=== PATIENT | male | born 1960 | race Caucasian/White ===

== ENCOUNTER 2018-02-17 11:51 | Emergency (ER) | payer OTHER ==
[~2018-02-17] VITALS: Ht 177.8 cm; Wt 88.6 kg
[~2018-02-17 11:51] MED LIST: DICL50 PO; PENI500T PO; Z.0.NO CURRENT MEDS
[2018-02-17 12:45] VITALS: BP 142/90; PULSE 88; RESP 18; TEMP 97.9; O2SAT 98
[2018-02-17] MEDS ORDERED: PERC5TAB12 PO ×2 (13:21→13:27)
--- NOTE | 2018-02-17 13:25 | PD ---
HPI Chief Complaint: Injury Time Seen by Provider: 13:07 Travel History International Travel<30 days: No Contact w/Intl Traveler<30days: No Traveled to known affect area: No History of Present Illness HPI 57-year-old male presents emergency department status post fracture to the left distal femur in the knee joint requiring open reduction and fixation. Patient is here in a knee immobilizer and crutches requesting pain meds as he has an appointment in [address] Park, orthopedist for further treatment. Patient was originally seen at [facility] for the original injury which was on 01/25/2018. Patient has no other complaints or worries. Pain is currently 7 out of 10, and he was taking Percocet every 4 hours. He is allergic to codeine. PFSH Past Medical History Diminished Hearing: No Musculoskeletal: Yes (SHOULDER PAIN LT KNEE PAIN) Immunizations Current: Yes Past Surgical History Joint Replacement: Yes (RIGHT ELBOW) Other Surgery: Yes (TUMORS REMOVED FROM CHEST) Social History Alcohol Use: Yes (Saturday) Tobacco Use: Yes (1 PPD) Substance Use: Yes Allergies-Medications (Allergen,Severity, Reaction): Uncoded Allergies: CODIENE (Allergy, Severe, 11/08/11) Reported Meds & Prescriptions Reported Meds & Active Scripts Active Percocet (Oxycodone-Acetaminophen) 5-325 mg Tab 1 Tab PO Q6H PRN Voltaren (Diclofenac Sodium) 50 Mg Tabec 50 Mg PO TIDPRN FOR PAIN Pen Vk (Penicillin V Potassium) 500 Mg Tab 500 Mg PO QID Reported No Current Meds (Miscellaneous Medication) Misc Review of Systems Except as stated in HPI: all other systems reviewed are Neg General / Constitutional: No: Fever Eyes: No: Visual changes HENT: No: Headaches Cardiovascular: No: Chest Pain or Discomfort Respiratory: No: Shortness of Breath Gastrointestinal: No: Abdominal Pain Genitourinary: No: Dysuria Musculoskeletal: Positive: Arthralgias, Limited ROM, Pain Skin: No Rash Neurologic: No: Weakness Psychiatric: No: Depression Endocrine: No: Polydipsia Hematologic/Lymphatic: No: Easy Bruising Physical Exam Narrative GENERAL: Patient appears in mild to moderate distress per SKIN: Warm and dry. Normal color. Normal turgor HEAD: Atraumatic. Normocephalic. EYES: Pupils equal and round. No scleral icterus. No injection or drainage. ENT: No nasal bleeding or discharge. Mucous membranes pink and moist. Pharynx is clear. Airways patent NECK: Trachea midline. Supple and nontender per CARDIOVASCULAR: Regular rate and rhythm. RESPIRATORY: No accessory muscle use. Clear to auscultation. Breath sounds equal bilaterally. MUSCULOSKELETAL: Extremities without clubbing, cyanosis, or edema. No obvious deformities. Patient is wearing a knee immobilizer which is maintained. Repeat knee exam was not performed secondary to known fracture. NEUROLOGICAL: Awake and alert. No obvious cranial nerve deficits. Motor grossly within normal limits. Five out of 5 muscle strength in the arms and legs. Normal speech. PSYCHIATRIC: Appropriate mood and affect; insight and judgment normal. Data Data Last Documented VS Vital Signs Date Time Temp Pulse Resp B/P (MAP) Pulse Ox O2 Delivery O2 Flow Rate FiO2 02/17/18 12:45 97.9 88 18 142/90 (107) 98 MDM Medical Decision Making Medical Screen Exam Complete: Yes Emergency Medical Condition: Yes Medical Record Reviewed: Yes Differential Diagnosis Left knee pain. Left knee fracture. Need for medication refill Narrative Course Patient is medically stable at time of exam. Patient is given Percocet 5/325 one every 6 hours as needed #12. Patient to follow-up with orthopedist as scheduled. Diagnosis Primary Impression: Encounter for medication refill Additional Impression: Closed fracture of left distal femur Qualified Codes: S72.402D - Unspecified fracture of lower end of left femur, subsequent encounter for closed fracture with routine healing Referrals: Juan M Park MD 3 days Patient Instructions: General Instructions Additional Instructions: Patient is given Percocet 5/325 one every 6 hours as needed #12. Patient to follow-up with orthopedist as scheduled. Scripts Oxycodone-Acetaminophen (Percocet) 5-325 mg Tab 1 TAB PO Q6H Y for PAIN, #12 TAB 0 Refills Prov: Tamiko Rizvi MD 02/17/18 Disposition: 01 DISCHARGE HOME Condition: Stable Hari Arenas Feb 17, 2018 13:25
== END 2018-02-17 13:38 | disposition home or self-care (01) ==
LOC: NEPK 11:51
DX: S72.402D Unspecified fracture of lower end of left femur, subsequent encounter for closed fracture with routine healing (principal); X58.XXXD Exposure to other specified factors, subsequent encounter; Z76.0 Encounter for issue of repeat prescription
CPT/HCPCS: 99281

== ENCOUNTER 2018-02-21 05:34 | Day surgery (SDC) | payer OTHER ==
[~2018-02-21] VITALS: Ht 180.3 cm; Wt 88.4 kg
[~2018-02-21 05:34] MED LIST changes: +PERC5TAB12 PO
[2018-02-21] MEDS ORDERED: METOPROLOL TARTRATE 25 MG TAB PO PRN (06:00)
[2018-02-21] MEDS ORDERED: POVIDONE IODINE 5% (ANTISEPSIS KIT) 4 APPLICATIONS EACH NARE PRN (06:00)
[2018-02-21] MEDS ORDERED: ceFAZolin 2 GM PREMIX 50 ML IV SCH (06:00)
[2018-02-21] MEDS ORDERED: SODIUM CHLORID 0.9% 500 ML IV PRN (06:00)
[2018-02-21] MEDS ORDERED: CHLORHEXIDINE GLUCONATE 2 % 1 PACK (2 CLOTHS) TOPICAL PRN (06:00)
[2018-02-21] MEDS ORDERED: LACTATED RINGER'S 1000 ML IV PRN (06:00)
[2018-02-21] MEDS ORDERED: VANCOMYCIN 1 GM/200 ML PREMIX ON-CALL IV SCH (06:00)
[2018-02-21] MEDS ORDERED: CHLORHEXIDINE GLUCONATE 4% SOLN 120 ML BTL TOPICAL SCH (06:00)
[2018-02-21 06:31] LABS: BASOPHIL # 0.1 TH/MM3 (0-0.2); BASOPHIL % 0.7 % (0.0-2.0); EOSINOPHIL # 0.3 TH/MM3 (0-0.4); EOSINOPHIL % 3.1 % (0.0-4.0); HEMATOCRIT 45.4 % (39.0-51.0); HEMOGLOBIN 15.3 GM/DL (13.0-17.0); LYMPH % 27.9 % (9.0-44.0); LYMPHOCYTE # 3.2 TH/MM3 (1.0-4.8); MEAN CELL VOLUME 91.2 FL (80.0-100.0); MEAN CORPUSCULAR HEMOGLOBIN 30.7 PG (27.0-34.0); MEAN CORPUSCULAR HGB CONC 33.7 % (32.0-36.0); MEAN PLATELET VOLUME 9.4 FL (7.0-11.0); MONO % 6.6 % (0.0-8.0); MONOCYTE # 0.7 TH/MM3 (0-0.9); NEUT % 61.7 % (16.0-70.0); PLATELET COUNT 230 TH/MM3 (150-450); RED BLOOD COUNT 4.98 MIL/MM3 (4.50-5.90); RED CELL DISTRIBUTION WIDTH 13.2 % (11.6-17.2); WHITE BLOOD COUNT 11.3 TH/MM3 (4.0-11.0)
[2018-02-21] MEDS ORDERED: GENTAMICIN SULFATE 80 MG/2 ML VIAL ONE (07:06)
[2018-02-21] MEDS ORDERED: KETAMINE HCL 50 MG/5 ML SYRINGE ONE (07:13)
[2018-02-21] MEDS ORDERED: XARE10TA PO (09:20)
[2018-02-21] MEDS ORDERED: PERC7.5T13 PO (09:20)
--- NOTE | 2018-02-21 09:24 | PD.ORT.PN ---
Subjective Subjective Remarks Postop day #0 status post ORIF left distal femur lateral condyle fracture Objective Vitals Vital Signs Date Time Temp Pulse Resp B/P (MAP) Pulse Ox O2 Delivery O2 Flow Rate FiO2 02/21/18 06:00 98.2 94 18 143/91 (108) 95 I/O 02/20/18 02/20/18 02/20/18 02/21/18 02/21/18 02/21/18 07:00 15:00 23:00 07:00 15:00 23:00 Intake Total 1200 ml Output Total 100 ml Balance 1100 ml Intake IV Total 1200 ml Output Estimated Blood Loss 100 ml Result Diagram: 02/21/18 0620 Objective Remarks Clean dry dressings in place. Calf and thigh compartments soft. Intact sensation left foot. Palpable dorsalis pedis pulse Assessment & Plan Assessment and Plan Strict nonweightbearing left leg Physical therapy for gait training and passive range of motion knee Prescriptions on chart Discharge home on Saturday if safe with therapy Follow-up with Dr. Collazo in 2 weeks Galo Collazo MD Feb 21, 2018 09:24
--- NOTE | 2018-02-21 09:27 | PD.OP ---
cc: Galo Hwang MD Operative Report Date of Surgery: Feb 21, 2018 Preoperative Diagnosis: Displaced left distal femur lateral condyle fracture Postoperative Diagnosis: Procedure: Open reduction internal fixation left distal femur lateral condyle fracture Anesthesia: General Surgeon: Galo Hwang Tank House Operator(s): JUAN Huertas PA-C The surgical procedure was assisted by my physician medical receptionist medical assistant. My P.A. presence was necessary throughout this case for the manipulation and positioning of the surgical extremity. My P.A. was assisting me throughout the duration of this procedure. The skill set of a physician medical receptionist medical assistant was medically necessary to complete this procedure. During the surgical case the surgical garment fitter was working at the back table and the physician medical receptionist medical assistant was directly assisting me. Operation and Findings: Josué was seen and evaluated preoperatively. The risks and benefits of surgery were discussed in depth with patient. Informed consent was obtained, operative site was marked. Patient was brought to the OR, placed on OR table, and given IV sedation with GETA. IV antibiotics were administered and timeout procedure was performed. The operative leg was prepped with alcohol, followed with Hibiclens, draped in usual sterile fashion. A timeout procedure was performed. The procedure began with a 5-inch incision over the lateral aspect of the distal femur. Subcutaneous tissue was dissected with Bovie. Iliotibial band was split in line with fibers. At this point the fracture was visualized. There was moderate fracture callus formation. Curettes were used to debride the fracture callus formation to allow for mobilization of the fracture. There was a fracture gap along the articular surface. There was also shortening of the lateral condyle which was resulting in a valgus knee deformity. Traction was applied. Fracture was manipulated. The fracture reduced into excellent alignment. A large periarticular clamp was used to compress the medial and lateral condyles together. Steinmann pins were used to hold provisional fixation. At this point attention was turned to plate placement. A lateral condylar plate was selected and attached to the insertion handle jig. The plate was placed underneath the vastus lateralis. Steinmann pins were used to hold the plate to bone. Multiplanar fluoroscopy confirmed appropriate placement of plate. Multiple 4.5 cortical screws were now placed. The plate was compressed to bone. Multiple locking screws were now placed in the distal segment of the distal femur. All screws were predrilled and premeasured for appropriate length. Final fluoroscopy revealed excellent alignment of fracture with well-placed hardware. Wound was thoroughly irrigated. Fascia was closed with #1 Vicryl. Subcutaneous tissue was closed with 3-0 Vicryl. Skin was closed with chuck. Sterile dressings were applied. The patient was placed into a knee immobilizer and transferred to recovery in stable condition. Needle and sponge counts were correct. Galo Hwang MD Feb 21, 2018 09:27
[2018-02-21] MEDS ORDERED: Post-op Orders (for Pharmacy) XX ONE (09:30)
[2018-02-21] MEDS ORDERED: oxyCODONE/ACETAMINOPHEN 7.5 MG/325 MG TAB PO PRN (09:30)
[2018-02-21] MEDS ORDERED: MISCELLANEOUS NURSING INFORMATION XX PRN (09:30)
[2018-02-21] MEDS ORDERED: NALOXONE HCL 0.4 MG/ML AMP IV PUSH PRN (09:30)
[2018-02-21] MEDS ORDERED: ONDANSETRON HCL 4 MG/2 ML VIAL IVP PRN (09:30)
[2018-02-21] MEDS ORDERED: diphenhydrAMINE HCL 25 MG CAP PO PRN (09:30)
[2018-02-21] MEDS ORDERED: MORPHINE SULFATE 4 MG/ML INJ IV PUSH PRN (09:30)
[2018-02-21] MEDS ORDERED: *MEPERIDINE 25 MG INJ VIAL PERIprocedural Use ONLY ONE (09:39)
[2018-02-21] MEDS ORDERED: DO NOT ADM ANY ANTICOAGULANT DRUGS PRN (09:42)
[2018-02-21] MEDS ORDERED: *morphine SULFATE 8 MG/ML PERIprocedure ONLY ONE (09:43)
[2018-02-21] MEDS: HYDROmorphone HCL PF 2 MG/ML VIAL IV PUSH PRN ×3 (09:45→22:00)
[2018-02-21] MEDS ORDERED: HYDROmorphone HCL PF 2 MG/ML VIAL ONE ×5 (09:46→12:59)
[2018-02-21] MEDS ORDERED: LORazepam 2 MG/ML VIAL ONE (09:53)
[2018-02-21] MEDS ORDERED: MIDAZOLAM HCL 2 MG/2 ML VIAL ONE (09:53)
[2018-02-21] MEDS: LACTATED RINGER'S 1000 ML INJ 1,000 ML IV SCH ×2 (10:00→19:59)
[2018-02-21] MEDS ORDERED: DEXAMETHASONE SOD PHOS 4 MG/ML VIAL IV ONE (12:00)
[2018-02-21] MEDS ORDERED: ONDANSETRON HCL 4 MG/2 ML VIAL IV ONE (12:00)
[2018-02-21] MEDS ORDERED: PROPOFOL 200 MG/20 ML AMP IV ONE (12:00)
[2018-02-21] MEDS ORDERED: LIDOCAINE HCL 1% PF 5 ML SYRINGE OTHER ONE (12:00)
[2018-02-21] MEDS ORDERED: LABETALOL HCL 100 MG/20 ML VIAL IV ONE (12:00)
[2018-02-21] MEDS ORDERED: HYDROmorphone HCL PF 1 MG/ML VIAL IV PUSH PRN (13:00)
[2018-02-21] MEDS ORDERED: ERGOCALCIFEROL (VIT D2) 50,000 UNIT CAP PO SCH (14:00)
--- NOTE | 2018-02-21 14:41 | RADRPT ---
EXAM DATE/TIME: 02/21/2018 09:08 [place] COMPARISON: No previous studies available for comparison. INDICATIONS : ORIF left femur. MEDICAL HISTORY : None. SURGICAL HISTORY : None. ENCOUNTER: Initial ACUITY: 1 day PAIN SCORE: Non-responsive. LOCATION: Left Femur. FINDINGS: Hardware is noted within the left distal femur status post ORIF and is in good position. CONCLUSION: Status post ORIF of left distal femur fracture with hardware in good position. Paulino Aguero MD on February 21, 2018 at 14:39 Board Certified Radiologist. This report was verified electronically.
[2018-02-21] MEDS: oxyCODONE/ACETAMINOPHEN 10 MG/325 MG TAB PO PRN ×3 (15:00→23:56)
[2018-02-21] MEDS: ceFAZolin 2 GM PREMIX 50 ML IV SCH ×2 (15:42→23:56)
[2018-02-21 16:00] VITALS: BP 128/83; PULSE 78; RESP 16; TEMP 97.5; O2SAT 96
--- NOTE | 2018-02-21 19:31 | EKG ---
Date Performed: 02/21/2018 Time Performed: 06:29:23 PTAGE: 57 years EKG: Sinus rhythm NORMAL ECG INTERPRETATION BASED ON A DEFAULT AGE OF 40 YEARS NO PREVIOUS TRACING DOCTOR: Irvin Arroyo Interpretating Date/Time 02/21/2018 19:29:00
[2018-02-21] MEDS: DOCUSATE SODIUM 50 MG/SENNA 8.6 MG TAB PO SCH (19:53)
[2018-02-21] MEDS: VANCOMYCIN INJ 1,000 MG in SODIUM CHLOR 0.9% 250 ML INJ 250 ML IV SCH (19:57)
[2018-02-21 20:05] VITALS: BP 122/70; PULSE 81; RESP 18; TEMP 98.8; O2SAT 97
[2018-02-22 00:15] VITALS: BP 130/68; PULSE 84; RESP 18; TEMP 98.7; O2SAT 95
[2018-02-22] MEDS: HYDROmorphone HCL PF 2 MG/ML VIAL IV PUSH PRN ×2 (02:00→06:15)
[2018-02-22 03:59] VITALS: BP 136/72; PULSE 88; RESP 18; TEMP 98.9; O2SAT 96
[2018-02-22] MEDS: oxyCODONE/ACETAMINOPHEN 10 MG/325 MG TAB PO PRN ×4 (04:32→17:00)
[2018-02-22 06:26] LABS: HEMOGLOBIN 12.4 GM/DL (13.0-17.0)
[2018-02-22 06:29] VITALS: BP 117/59; PULSE 70; RESP 18; TEMP 97.9; O2SAT 97
--- NOTE | 2018-02-22 07:16 | PD.ORT.PN ---
Subjective Subjective Remarks Patient resting comfortably this morning. States he was unable to sleep overnight due to discomfort. Objective Vitals Vital Signs Date Time Temp Pulse Resp B/P (MAP) Pulse Ox O2 Delivery O2 Flow Rate FiO2 02/22/18 03:59 98.9 88 18 136/72 (93) 96 02/22/18 00:15 98.7 84 18 130/68 (88) 95 02/21/18 20:05 98.8 81 18 122/70 (87) 97 02/21/18 16:00 97.5 78 16 128/83 (98) 96 02/21/18 15:00 70 15 116/70 (85) 95 Nasal Cannula 2 02/21/18 13:00 65 15 124/60 (81) 97 Nasal Cannula 2 02/21/18 12:00 72 16 122/62 (82) 97 Nasal Cannula 2 02/21/18 11:55 15 02/21/18 11:30 76 16 130/72 (91) 97 Nasal Cannula 2 02/21/18 10:45 98.7 72 14 149/76 (100) 96 Nasal Cannula 2 02/21/18 10:30 71 15 150/81 (104) 96 Nasal Cannula 2 02/21/18 10:15 70 16 159/77 (104) 94 Nasal Cannula 2 02/21/18 10:00 81 26 172/83 (112) 98 Room Air 02/21/18 09:45 90 24 178/84 (115) 100 Room Air 02/21/18 09:40 98.0 92 20 135/90 (105) 99 Simple Mask 6 I/O 02/21/18 02/21/18 02/21/18 02/22/18 02/22/18 02/22/18 07:00 15:00 23:00 07:00 15:00 23:00 Intake Total 1200 ml 1920 ml 480 ml Output Total 100 ml 650 ml 1275 ml Balance 1100 ml 1270 ml -795 ml Intake Oral 420 ml 480 ml IV Total 1200 ml 1500 ml Output Urine Total 650 ml 1275 ml Estimated Blood Loss 100 ml # Voids 2 # Bowel Movements 0 Result Diagram: 02/22/18 0522 Objective Remarks Awake, alert, no acute distress. Left lower extremity: Clean dry dressings in place. Calf and thigh compartments soft. Neurovascularly intact distally. Intact sensation left foot. Palpable dorsalis pedis pulse Assessment & Plan Assessment and Plan 57yo M, POD#1 s/p ORIF L femoral condyle fracture Strict nonweightbearing left leg Physical therapy for gait training and passive range of motion knee Prescriptions on chart Discharge home today if safe with therapy Follow-up with Dr. Collazo in 2 weeks Kandis Mon MD Feb 22, 2018 07:16
[2018-02-22] MEDS: DOCUSATE SODIUM 50 MG/SENNA 8.6 MG TAB PO SCH (08:48)
[2018-02-22] MEDS: VANCOMYCIN INJ 1,000 MG in SODIUM CHLOR 0.9% 250 ML INJ 250 ML IV SCH (08:50)
[2018-02-22] MEDS: ceFAZolin 2 GM PREMIX 50 ML IV SCH ×2 (08:50→15:53)
[2018-02-22] MEDS ORDERED: CHOLECALCIFEROL (VIT D3) 1000 UNIT TAB PO SCH (09:00)
[2018-02-22] MEDS ORDERED: ENOXAPARIN SODIUM 30 MG/0.3 ML SYRINGE SQ SCH (09:00)
[2018-02-22] MEDS: LACTATED RINGER'S 1000 ML INJ 1,000 ML IV SCH (10:21)
[2018-02-22 12:00] VITALS: BP 131/80; PULSE 79; RESP 18; TEMP 98.6; O2SAT 97
== END 2018-02-22 17:38 | disposition home or self-care (01) ==
LOC: HSDC 05:34 → N06A 15:59 → HSDC 02-22 17:38
PROVIDERS: ATTEND Orthopaedic Surgery Orthopaedic Trauma
DX: S72.422A Displaced fracture of lateral condyle of left femur, initial encounter for closed fracture (principal); R94.31 Abnormal electrocardiogram [ECG] [EKG]; R03.0 Elevated blood-pressure reading, without diagnosis of hypertension; F17.200 Nicotine dependence, unspecified, uncomplicated; W01.0XXA Fall on same level from slipping, tripping and stumbling without subsequent striking against object, initial encounter
CPT/HCPCS: 01360; 27514; 73552; 76000; 85014; 85018; 85025; 93005; 97162; C1713; C1769; G8987; G8988; J0690; J1100; J1170; J1580; J1650; J2060; J2175; J2250; J2270; J2405; J3010; J3370; J7050; J7120

== ENCOUNTER 2018-11-06 18:39 | Observation (INO) ==
--- NOTE | 2018-11-06 19:28 | ED ---
HPI General Chief Complaint: Chest Pain Stated Complaint: Sob Time Seen by Provider: 11/06/18 19:19 Source: patient Mode of arrival: ambulatory Limitations: no limitations History of Present Illness HPI narrative: 58-year-old male came to the emergency room with history of right -sided chest pain that is progressively worsening for past 2 days. Patient says it is on the right superior lateral aspect of his anterior chest. Pain seems to be worse when he takes a deep breath or vigorous movement. The pain is down radiation all however. Patient does not coughing but says that he felt like he was coming down with a chest cold. Today 1 hour prior to coming to the emergency room the pain suddenly got intense and he was sweating when he decided to come here. Currently he says that if he does not move its 2 out of 10. He is taking shallow breaths since that makes the pain worse. Vital signs are otherwise stable. Patient is a smoker. He does not have any past medical history as per him and is not on any medications. Patient did have an accident where he broke his knee and had a surgical repair in August. Patient says that he went back to work 3 weeks after the accident since he could not afford not making money or any longer. Patient has never had a stress test before. No family history of urinary artery disease. No previous history of DVT or PE. Related Data Previous Rx's Medication Instructions Recorded ibuprofen [IBU] 800 mg PO TID 10 Days #30 tab 11/07/18 Allergies Allergy/AdvReac Type Severity Reaction Status Date / Time codeine Allergy Severe NAUSEA Verified 11/06/18 19:05 Review of Systems ROS: all other systems reviewed are negative [facility] Medical History Medical History Tobacco use (Acute) Surgical History Surgical History H/O knee surgery (Acute) H/O repair of rotator cuff (Acute) Social History Social History Substance History: Active Abuse Second Hand Smoke Exposure: Yes Smoking Status: Current every day smoker Tobacco Type: Cigarettes Packs Per Day: 1 Cigarettes Per Day: 20.0 Years Smoked: 40 Pack-Years: 40.00 How Often Do You Have a Drink Containing Alcohol: Never Recent Travel in [facility] within the Last 8 Weeks: No Recent Out of Country Travel within the Last 8 Weeks: No Substance Abuse Detail Marijuana: Substance Use Status: Active Route Used 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 HEAD: Atraumatic. Normocephalic. EYES: Pupils equal and round. No scleral icterus. No injection or drainage. ENT: No nasal bleeding or discharge. Mucous membranes pink and moist. NECK: Trachea midline. No JVD. CARDIOVASCULAR: Regular rate and rhythm. No murmur appreciated. RESPIRATORY: No accessory muscle use. Clear to auscultation. Breath sounds equal bilaterally. GASTROINTESTINAL: Abdomen soft, non-tender, nondistended. Hepatic and splenic margins not palpable. MUSCULOSKELETAL: No obvious deformities. No clubbing. No cyanosis. No edema. NEUROLOGICAL: Awake and alert. No obvious cranial nerve deficits. Motor grossly within normal limits. Normal speech. PSYCHIATRIC: Appropriate mood and affect; insight and judgment normal. Course Initial Documented Vital Signs Temperature 99.1 F 11/06/18 18:48 Pulse Rate 90 11/06/18 18:48 Respiratory Rate 16 11/06/18 18:48 Blood Pressure 138/83 11/06/18 18:48 Pulse Oximetry 98 11/06/18 18:48 Last Documented Vital Signs Temperature 97.6 F 11/07/18 08:01 Pulse Rate 71 11/07/18 08:30 Respiratory Rate 18 11/07/18 08:30 Blood Pressure 130/83 11/07/18 08:01 Pulse Oximetry 96 11/07/18 08:01 Medical Decision Making MDM Narrative Medical decision making narrative: 8:16 PM awaiting for blood test including d- dimer since there is mild risk of PE based on the history. 10:18 PM. D-dimer was elevated and a CT a pulmonary was done which is negative for PE. Patient will be admitted to the chest pain center given some risk factors for ACS. Medical Screen Exam Complete: Yes Emergency Medical Condition: Yes Lab Data Result diagrams: 11/06/18 19:59 11/06/18 19:59 Lab Results 11/06/18 11/06/18 11/06/18 Range/Units 19:59 19:59 19:59 WBC 11.2 H (4.0-11.0) th/mm3 RBC 4.59 (4.50-5.90) mil/mm3 Hgb 14.3 (13.0-17.0) gm/dL Hct 41.1 (39.0-51.0) % MCV 89.4 (80.0-100.0) fL MCH 31.1 (27.0-34.0) pg MCHC 34.8 (32.0-36.0) % RDW 13.4 (11.6-17.2) % Plt Count 199 (150-450) th/mm3 MPV 9.5 (7.0-11.0) fL Neut % (Auto) 56.6 (16.0-70.0) % Lymph % (Auto) 30.6 (9.0-44.0) % Barbour % (Auto) 9.6 H (0.0-8.0) % Eos % (Auto) 2.0 (0.0-4.0) % Baso % (Auto) 1.2 (0.0-2.0) % Neut # (Auto) 6.3 (1.8-7.7) th/mm3 Lymph # (Auto) 3.4 (1.0-4.8) th/mm3 Barbour # (Auto) 1.1 H (0.0-0.9) th/mm3 Eos # (Auto) 0.2 (0.0-0.4) th/mm3 Baso # (Auto) 0.1 (0.0-0.2) th/mm3 WBC Differential . Differential Comment Auto diff final D-Dimer Quant (PE/DVT) 1.65 H (0.00-0.50) mg/L FEU Sodium 136 (136-145) meq/L Potassium 4.0 (3.5-5.1) meq/L Chloride 103 (98-107) meq/L Carbon Dioxide 25.0 (21.0-32.0) meq/L Anion Gap 8 (5-15) meq/L BUN 11 (7-18) mg/dL Creatinine 0.94 (0.60-1.30) mg/dL Estimated GFR 83 L (>89) mL/min Random Glucose 140 H (74-106) mg/dL Calcium 9.0 (8.5-10.1) mg/dL Total Bilirubin 1.1 H (0.2-1.0) mg/dL AST 28 (15-37) U/L ALT 37 (12-78) U/L Alkaline Phosphatase 89 (45-117) U/L Total Creatine Kinase (39-308) U/L Troponin I Less than 0.02 L (0.02-0.05) ng/mL B-Natriuretic Peptide (0-100) pg/mL Total Protein 8.3 H (6.4-8.2) g/dL Albumin 3.8 (3.4-5.0) g/dL 11/06/18 11/06/18 11/07/18 Range/Units 19:59 22:41 01:35 WBC (4.0-11.0) th/mm3 RBC (4.50-5.90) mil/mm3 Hgb (13.0-17.0) gm/dL Hct (39.0-51.0) % MCV (80.0-100.0) fL MCH (27.0-34.0) pg MCHC (32.0-36.0) % RDW (11.6-17.2) % Plt Count (150-450) th/mm3 MPV (7.0-11.0) fL Neut % (Auto) (16.0-70.0) % Lymph % (Auto) (9.0-44.0) % Barbour % (Auto) (0.0-8.0) % Eos % (Auto) (0.0-4.0) % Baso % (Auto) (0.0-2.0) % Neut # (Auto) (1.8-7.7) th/mm3 Lymph # (Auto) (1.0-4.8) th/mm3 [place]bour # (Auto) (0.0-0.9) th/mm3 Eos # (Auto) (0.0-0.4) th/mm3 Baso # (Auto) (0.0-0.2) th/mm3 WBC Differential Differential Comment D-Dimer Quant (PE/DVT) (0.00-0.50) mg/L FEU Sodium (136-145) meq/L Potassium (3.5-5.1) meq/L Chloride (98-107) meq/L Carbon Dioxide (21.0-32.0) meq/L Anion Gap (5-15) meq/L BUN (7-18) mg/dL Creatinine (0.60-1.30) mg/dL Estimated GFR (>89) mL/min Random Glucose (74-106) mg/dL Calcium (8.5-10.1) mg/dL Total Bilirubin (0.2-1.0) mg/dL AST (15-37) U/L ALT (12-78) U/L Alkaline Phosphatase (45-117) U/L Total Creatine Kinase 89 90 (39-308) U/L Troponin I Less than 0.02 L Less than 0.02 L (0.02-0.05) ng/mL B-Natriuretic Peptide 10 (0-100) pg/mL Total Protein (6.4-8.2) g/dL Albumin (3.4-5.0) g/dL Imaging Data Radiologist's impression: Chest X-Ray 11/06/18 19:34 CONCLUSION: 1. No acute cardiopulmonary disease. Chest CTA 11/06/18 21:02 CONCLUSION: 1. No CT evidence for pulmonary artery embolism. 2. Minimal groundglass opacities at the lung bases consistent with atelectasis. ECG Data Attestation: I personally reviewed and interpreted this ECG as follows: Interpretation: Twelve-lead EKG was reviewed by me. Normal sinus rhythm, normal axis, nonspecific ST-T wave changes. Heart rate of 84 bpm. Discharge Plan Discharge Disposition Patient Disposition: ED Admit(ED Internal Use Only) Discharge Condition Condition: Stable Discharge Order Discharge Orders: Discharge Order (Routine); Ordered 11/07/18 Ordered By: Marija Quevedo ED Use Only Admit Order (Routine); Ordered 11/06/18 Ordered By: Cat Samson Discharge Details Anticipated Discharge Date: 11/07/18 Discharge Comment: AFTER taking prescription ibuprofen, then may use over the counter as needed for discomfort for 1 week. If discomfort continues past this time discuss with primary care provider, avoiding constant use of ibuprofen. May use heating pad to affected area. Physicians Team ED Provider: Cat Samson Primary Care Provider: Primary Care Lyssa Ko Attending Provider: Marie Cesar ED Status: Left Department Discharge Information Discharge Date/Time: 11/06/18 22:59
--- NOTE | 2018-11-06 19:48 | XR ---
EXAM DATE: 11/06/2018 7:46 PM EST AGE/SEX: 58 years / Male INDICATIONS: Chest pain and shortness of breath. CLINICAL DATA: This is the patient's initial encounter. Patient reports that signs and symptoms have been present for 1 day and indicates a pain score of 5/10. MEDICAL/SURGICAL HISTORY: None. None. COMPARISON: No prior exams available for comparison. FINDINGS: A single AP view of the chest demonstrates the lungs to be symmetrically aerated without evidence of mass, infiltrate or effusion. The cardiomediastinal contours are unremarkable. Osseous structures a re intact. CONCLUSION: 1. No acute cardiopulmonary disease. Electronically signed by: Paxton Grider MD Board Certified Radiologist 11/06/2018 7:47 PM JAROD T
[2018-11-06 20:21] LABS: Baso # (Auto) 0.1 th/mm3 (0.0-0.2); Baso % (Auto) 1.2 % (0.0-2.0); Eos # (Auto) 0.2 th/mm3 (0.0-0.4); Hematocrit 41.1 % (39.0-51.0); Hemoglobin 14.3 gm/dL (13.0-17.0); Lymph # (Auto) 3.4 th/mm3 (1.0-4.8); Lymph % (Auto) 30.6 % (9.0-44.0); Mean Corpuscular HGB Conc 34.8 % (32.0-36.0); Mean Corpuscular Hemoglobin 31.1 pg (27.0-34.0); Mean Corpuscular Volume 89.4 fL (80.0-100.0); Mean Platelet Volume 9.5 fL (7.0-11.0); Mono # (Auto) 1.1 th/mm3 (0.0-0.9); Mono % (Auto) 9.6 % (0.0-8.0); Neut # (Auto) 6.3 th/mm3 (1.8-7.7); Neut % (Auto) 56.6 % (16.0-70.0); Platelet Count 199 th/mm3 (150-450); Red Blood Count 4.59 mil/mm3 (4.50-5.90); Red Cell Distribution Width 13.4 % (11.6-17.2); White Blood Count 11.2 th/mm3 (4.0-11.0)
[2018-11-06 20:22] LABS: Albumin 3.8 g/dL (3.4-5.0); Anion Gap 8 meq/L (5-15); Aspartate Aminotransferase 28 U/L (15-37); Blood Urea Nitrogen 11 mg/dL (7-18); Chloride 103 meq/L (98-107); Glomerular Filtration Rate 83 mL/min (>89); Glucose,Random 140 mg/dL (74-106); Sodium 136 meq/L (136-145)
[2018-11-06 20:23] LABS: Alanine Aminotransferase 37 U/L (12-78)
[2018-11-06 20:27] LABS: Alkaline Phosphatase 89 U/L (45-117); Total Protein 8.3 g/dL (6.4-8.2)
--- NOTE | 2018-11-06 22:01 | CT ---
EXAM DATE: 11/06/2018 9:57 PM EST AGE/SEX: 58 years / Male INDICATIONS: Right side chest pain. CLINICAL DATA: This is the patient's initial encounter. Patient reports that signs and symptoms have been present for 3 days and indicates a pain score of 3/10. MEDICAL/SURGICAL HISTORY: None. None. RADIATION DOSE: 10.75 CTDI (mGy) COMPARISON: [facility], CHEST 1V SINGLE AP, 11/06/2018. . TECHNIQUE: Volumetric scanning was performed using a multi-row detector CT scanner during bolus infu darryn of 72 ml Omnipaque 350 (iohexol) nonionic water-soluble contrast as a single exam dose. The indu a was post processed with a variety of visualization algorithms including full volume maximum intensi ty projection and sliding thin slab reformation. Using automated exposure control and adjustment of the mA and/or kV according to patient size, radiation dose was kept as low as reasonably achievable t o obtain optimal diagnostic quality images. DICOM format image data is available electronically for review and comparison. FINDINGS: Pulmonary Arteries: No filling defects are seen in the pulmonary arteries through the segmental vess els. The main pulmonary artery is normal in diameter. Lung: Minimal groundglass opacities near the lung bases. Pleura: No effusion, significant pleural thickening or pneumothorax. Mediastinum: Heart is unremarkable without pericardial effusion.No evidence of mediastinal or hilar adenopathy. Osseous Structures: No abnormal focal lytic or blastic bony lesions. Other: Visulaized upper abdomen is unremarkable. CONCLUSION: 1. No CT evidence for pulmonary artery embolism. 2. Minimal groundglass opacities at the lung bases consistent with atelectasis. Electronically signed by: Paxton Grider MD Board Certified Radiologist 11/06/2018 10:00 PM E
[2018-11-06] MEDS ORDERED: Morphine Sulfate Inj 2 MG/ML Vial IV.PUSH ONE (22:24)
[2018-11-06] MEDS ORDERED: Morphine Inj 4 MG/ML Vial IV.PUSH ONE (22:45)
[2018-11-06 23:15] LABS: Creatine Kinase 89 U/L (39-308)
[2018-11-07 02:10] LABS: Creatine Kinase 90 U/L (39-308)
[2018-11-07] MEDS ORDERED: Ketorolac Inj 30 MG/ML (IVP) Vial IV.PUSH ONE ×2 (08:13→08:30)
--- NOTE | 2018-11-07 08:15 | P.HPCA ---
History of Present Illness Primary Care Physician: No Primary Care Physician Chief Complaint: Chest pain History of Present Illness: 58 year old male current smoker without any past medical history presents to [facility] for further evaluation of chest pain. Onset 3 days ago. Location right scapula area with radiation to right anterior chest. Characterized as sharp, dull, aching. Moderate in severity. No associated symptoms of nausea, vomiting, dyspnea, or diaphoresis. Movement, coughing, sneezing, or inspiration makes pain worse. No relieving factors. No recent illness, fever, or injury. Smokes 1 pack daily, no change in chronic cough or color or sputum. Past cardiac testing None Social history No known CAD, hypertension, hyperlipidemia, or diabetes. Lifelong smoker, currently 1 pack day. . 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 Activity limited due to chronic right knee pain. Family history Noncontributory for early onset cardiovascular disease - Diagnosis (1) Atypical chest pain (2) Tobacco abuse Review of Systems All other systems reviewed negative except as stated in HPI PMFSH - History History Provided By: Patient - Medical History Medical History: Medical History (Last Updated 11/07/18 @ 10:44 by MAURICIO Jaimes) Tobacco use - Surgical History Surgical History: Surgical History (Last Reviewed 11/07/18 @ 10:44 by MAURICIO Jaimes) H/O knee surgery H/O repair of rotator cuff - Social History I have reviewed the patient's Social History: Yes - Tobacco History Second Hand Smoke Exposure: Yes Tobacco Use In Past 30 Days: Yes Smoking Status: Current every day smoker Tobacco Type: Cigarettes Packs Per Day: 1 Years Smoked: 40 - Alcohol History How Often Do You Have a Drink Containing Alcohol: Never - Substance Use History Substance History: Active Abuse - Substance Use Type Marijuana Type: marijuana Status: Active Route Used: Inhalation Reason for Use: Calm Down, Feels Good, Sleep - Travel History Recent Travel in the [place] Within the Last 8 Weeks: No Recent Travel Out of the Country Within the Last 8 Weeks: No - Immunization History Tetanus Immunization: <5 Years Medications and Allergies Active Medications: Active Medications Sodium Chloride (Ns Flush) 2 ml IV.FLUSH UNSCH PRN PRN Reason: FLUSH AFTER USING IV ACCESS Sodium Chloride (Ns Flush) 2 ml IV.FLUSH BID MEIR Sodium Chloride (Ns Flush) 2 ml IV.FLUSH PRN PRN PRN Reason: FLUSH AFTER USING IV ACCESS Allergies Allergy/AdvReac Type Severity Reaction Status Date / Time codeine Allergy Severe NAUSEA Verified 11/06/18 19:05 Home Medications Medication Instructions Recorded Confirmed Type oxycodone-acetaminophen [Percocet] 1 tab PO Q4-6H PRN 11/06/18 11/06/18 History Exam Vital signs: Vital Signs 11/06/18 18:48 11/06/18 19:06 11/06/18 22:08 Temperature 99.1 F Pulse Rate 90 83 70 Respiratory Rate 16 22 16 Blood Pressure 138/83 125/81 130/70 Pulse Oximetry 98 98 99 11/07/18 00:04 11/07/18 08:01 Temperature 98.0 F 97.6 F Pulse Rate 68 79 Respiratory Rate 18 16 Blood Pressure 136/77 130/83 Pulse Oximetry 96 96 Intake & Output 11/06/18 11/07/18 11/07/18 18:59 06:59 18:59 Weight 86.183 kg 86.183 kg Other: Date of Last Bowel Movement 11/06/18 Weight On Admission 86.183 kg Narrative: GENERAL: Alert WN, WD, NAD, pleasant, male HEAD: NC, AT EYES: Sclera clear, conjunctiva without injection NECK: Supple, no masses, trachea midline CV: RRR, without murmur, rub, gallop, no JVD, S1-S2. Chest wall tender to palpation. RESP: Diminished lungs throughout bilateral, no crackles or rhonchi, faint aspiratory wheeze symmetrical chest rise, nonlabored, able to speak in full sentences ABD: Soft, NT, ND, no masses, positive bowel tones BACK: No scoliosis EXT: Pulses +2x4, no dependent edema MS: Normal tone x4 extremities, no obvious deformities, full range of motion NEURO: Motor strength 5/5 PSYCH: A+O x3, pleasant affect, appropriate speech, mood, insight and judgment SKIN: Normal turgor, normal texture, no lesions, no rashes, heavily tattooed Results 11/06/18 19:59 11/06/18 19:59 Cardiac Enzymes 11/06/18 11/06/18 11/06/18 Range/Units 19:59 19:59 22:41 AST 28 (15-37) U/L Troponin I Less than 0.02 L Less than 0.02 L (0.02-0.05) ng/mL B-Natriuretic Peptide 10 (0-100) pg/mL 11/07/18 Range/Units 01:35 AST (15-37) U/L Troponin I Less than 0.02 L (0.02-0.05) ng/mL B-Natriuretic Peptide (0-100) pg/mL Coagulation 11/06/18 Range/Units 19:59 B-Natriuretic Peptide 10 (0-100) pg/mL CBC 11/06/18 Range/Units 19:59 WBC 11.2 H (4.0-11.0) th/mm3 RBC 4.59 (4.50-5.90) mil/mm3 Hgb 14.3 (13.0-17.0) gm/dL Hct 41.1 (39.0-51.0) % Plt Count 199 (150-450) th/mm3 Neut # (Auto) 6.3 (1.8-7.7) th/mm3 Lymph # (Auto) 3.4 (1.0-4.8) th/mm3 [place] # (Auto) 1.1 H (0.0-0.9) th/mm3 Eos # (Auto) 0.2 (0.0-0.4) th/mm3 Baso # (Auto) 0.1 (0.0-0.2) th/mm3 Comprehensive Metabolic Panel 11/06/18 Range/Units 19:59 Sodium 136 (136-145) meq/L Potassium 4.0 (3.5-5.1) meq/L Chloride 103 (98-107) meq/L Carbon Dioxide 25.0 (21.0-32.0) meq/L BUN 11 (7-18) mg/dL Creatinine 0.94 (0.60-1.30) mg/dL Calcium 9.0 (8.5-10.1) mg/dL AST 28 (15-37) U/L ALT 37 (12-78) U/L Alkaline Phosphatase 89 (45-117) U/L Total Protein 8.3 H (6.4-8.2) g/dL Albumin 3.8 (3.4-5.0) g/dL Intake and Output 11/06/18 11/07/18 11/07/18 22:59 06:59 14:59 Other: Date of Last Bowel Movement 11/06/18 Weight 86.183 kg 86.183 kg Weight On Admission 86.183 kg - Imaging and Cardiology Imaging: Impressions Chest X-Ray 11/06/18 19:34 CONCLUSION: 1. No acute cardiopulmonary disease. Chest CTA 11/06/18 21:02 CONCLUSION: 1. No CT evidence for pulmonary artery embolism. 2. Minimal groundglass opacities at the lung bases consistent with atelectasis. EKG interpretations - EKG EKG results cardiology: sinus rhythm, normal axis, normal QRS, normal ST/T Caprini VTE Risk Assessment Caprini VTE Risk Assessment: No/Low Risk (score <= 1) Caprini Risk Assessment Model: Point Value = 1 Point Value = 2 Point Value = 3 Point Value = 5 Age 41-60 Minor surgery BMI > 25 kg/m2 Swollen legs Varicose veins or History of unexplained or recurrent spontaneous Oral contraceptives or hormone replacement Sepsis (< 1 month) Serious lung disease, including pneumonia (< 1 month) Abnormal pulmonary function Acute myocardial infarction Congestive heart failure (< 1 month) History of inflammatory bowel disease Medical patient at bed rest Age 61-74 Arthroscopic surgery Major open surgery (> 45 min) Laparoscopic surgery (> 45 min) Malignancy Confined to bed (> 72 hours) Immobilizing plaster cast Central venous access Age >= 75 History of VTE Family history of VTE Factor V Leiden Prothrombin [id number] Lupus anticoagulant Anticardiolipin antibodies Elevated serum homocysteine Heparin-induced thrombocytopenia Other congenital or acquired thrombophilia Stroke (< 1 month) Elective arthroplasty Hip, pelvis, or leg fracture Acute spinal cord injury (< 1 month) Prophylaxis Regimen: Total Risk Factor Score Risk Level Prophylaxis Regimen 0-1 Low Early ambulation 2 Moderate Order ONE of the following: *Sequential Compression Device (SCD) *Heparin 5000 units SQ BID 3-4 Higher Order ONE of the following medications: *Heparin 5000 units SQ TID *Enoxaparin/Lovenox 40 mg SQ daily (WT < 150 kg, CrCl > 30 mL/min) *Enoxaparin/Lovenox 30 mg SQ daily (WT < 150 kg, CrCl > 10-29 mL/min) *Enoxaparin/Lovenox 30 mg SQ BID (WT < 150 kg, CrCl > 30 mL/min) AND/OR *Sequential Compression Device (SCD) 5 or more Highest Order ONE of the following medications: *Heparin 5000 units SQ TID (Preferred with Epidurals) *Enoxaparin/Lovenox 40 mg SQ daily (WT < 150 kg, CrCl > 30 mL/min) *Enoxaparin/Lovenox 30 mg SQ daily (WT < 150 kg, CrCl > 10-29 mL/min) *Enoxaparin/Lovenox 30 mg SQ BID (WT < 150 kg, CrCl > 30 mL/min) AND *Sequential Compression Device (SCD) Assessment and Plan - Assessment (1) Atypical chest pain Code(s): R07.89 - Other chest pain Status: Acute Plan: Admit to chest pain center. ACS ruled out with 3 sets of EKGs and cardiac enzymes. Monitor on telemetry overnight. Seen and evaluated by Dr. Marie Cesar. Discomfort pleuritic component. One dose Toradol 30 mg iv x1 dose now, then discharging home with prescription strength ibuprofen times 1 week followed by [id number] ibuprofen. See with exercise cardiac testing prior to discharge. (2) Tobacco abuse Code(s): Z72.0 - Tobacco use Status: Chronic Plan: Strongly encouraged and stressed importance of tobacco cessation. Instructed to quit smoking. Informed of Tobacco Free [place] program. Contact information for program will be provided upon discharge. H&P: Quality - VTE Deep Vein Thrombosis/Pulmonary Embolism Present on Admission: No
--- NOTE | 2018-11-07 16:54 | TR ---
Date Performed: 11/07/2018 Time Performed: 10:04:21 DOCTOR: Marie Cesar DRUG LIST: CLINICAL HISTORY: REASON FOR TEST: REASON FOR ENDING: OBSERVATION: CONCLUSION: Alberto protocol completed. Stopped sec to knee pain and reaching target heart rate. M aximum EU=924 Max HR Achieved=89.0% Max bp 172/70. No reprod chest pain. No st segment changes to sug gest ischemia. Poor exercise tolerance. Normal bp response. Recovery quick and unremarkable. COMMENTS: No ischemia
--- NOTE | 2018-11-07 16:58 | ECG ---
Date Performed: 11/06/2018 Time Performed: 22:49:51 PTAGE: 58 years EKG: Sinus rhythm ARM LEADS REVERSED ATYPICAL ECG Since PREVIOUS TRACING , no significant change noted PREVIOUS TRACIN11/06/2018 19.08 DOCTOR: Marie Cesar Interpretating Date/Time 11/07/2018 16:57:21
--- NOTE | 2018-11-07 16:58 | ECG ---
Date Performed: 11/07/2018 Time Performed: 01:21:47 PTAGE: 58 years EKG: Sinus rhythm POSSIBLE RIGHT VENTRICULAR CONDUCTION DELAY BORDERLINE ECG Since PREVIOUS TRACING , no significant change noted PREVIOUS TRACIN11/06/2018 22.49 DOCTOR: Marie Cesar Interpretating Date/Time 11/07/2018 16:56:50
--- NOTE | 2018-11-07 20:42 | ECG ---
Date Performed: 11/06/2018 Time Performed: 19:08:40 PTAGE: 58 years EKG: Sinus rhythm POSSIBLE RIGHT VENTRICULAR CONDUCTION DELAY BORDERLINE ECG INTERPRETATION BASED ON A DEFAULT AGE OF 40 YEARS PREVIOUS TRACING : 02/21/2018 06.29 DOCTOR: Coby Joshua Interpretating Date/Time 11/07/2018 20:39:59
== END 2018-11-07 11:16 | disposition home or self-care (01) ==
LOC: NEDA 18:39 → NEPE 18:39 → NEPHCDU 22:54
PROVIDERS: ADMIT Internal Medicine Interventional Cardiology; ATTEND Internal Medicine Interventional Cardiology
DX: G89.29 Other chronic pain; R07.89 Other chest pain; M25.561 Pain in right knee; R94.31 Abnormal electrocardiogram [ECG] [EKG]; F17.210 Nicotine dependence, cigarettes, uncomplicated; Z88.5 Allergy status to narcotic agent
CPT/HCPCS: 71010; 71045; 71275; 80053; 82550; 83520; 83880; 84484; 85025; 85379; 93005; 93017; 94664; 96374; 96375; 99285; G0378; J1885; J2270; Q9967